=== PATIENT | female | born 1995 | race Caucasian/White ===

== ENCOUNTER 2022-10-26 18:48 | Inpatient (IN) | payer OTHER ==
[2022-10-26] MEDS ORDERED: Lidocaine 1% (PF) 30 ML VIAL SC PRN (19:22)
[2022-10-26] MEDS ORDERED: Ibuprofen 800 MG TAB PO PRN (19:22)
[2022-10-26] MEDS ORDERED: Tranexamic Acid 1,000 MG/10 ML VIAL IVP PRN (19:22)
[2022-10-26] MEDS ORDERED: Misoprostol 200 MCG TAB PR PRN (19:22)
[2022-10-26] MEDS ORDERED: Carboprost 250 MCG/ML AMP IM PRN (19:22)
[2022-10-26] MEDS ORDERED: Methylergonovine 0.2 MG/ML VIAL IM PRN (19:22)
[2022-10-26] MEDS ORDERED: Diphenoxylate HCl/Atropine Tablet PO PRN (19:22)
[2022-10-26] MEDS ORDERED: Promethazine HCl 25 MG/ML VIAL IM PRN ×2 (19:22→21:04)
[2022-10-26] MEDS ORDERED: hydrALAZINE 20 MG/ML VIAL SLOW IVP PRN (19:22)
[2022-10-26] MEDS ORDERED: Ondansetron PF 4 MG/2 ML Vial IVP PRN ×2 (19:22→21:04)
[2022-10-26] MEDS ORDERED: Lactated Ringer's 1,000 ML IV SCH (19:30)
[2022-10-26] MEDS ORDERED: Misoprostol 100 MCG TAB VAG SCH (19:30)
[2022-10-26] MEDS ORDERED: NS w/ Oxytocin 30 units 500 ML IV SCH ×2 (19:30)
[2022-10-26 19:58] LABS: Hemoglobin 13.6 g/dL (12.0-15.5); Mean Corpuscular HGB CONC 34.7 g/dL (32.0-36.0); Mean Corpuscular Hemoglobin 31.1 pg (27.0-33.0); Mean Corpuscular Volume 89.5 fl (81.6-98.3); Mean Platelet Volume 11.5 fl (7.4-10.4); Platelet Count 224 10x3/uL (150-450); RBC Distribution Width 12.7 % (11.5-14.5); Red Blood Cell (RBC) Count 4.38 10x6/uL (3.90-5.03); White Blood Cell (WBC) Count 16.3 10x3/uL (3.5-10.5)
[2022-10-26] MEDS ORDERED: fentaNYL/Ropivacaine Epidural 100 ML ONE (20:02)
[2022-10-26 20:18] VITALS: BMI 28.3
[2022-10-26] MEDS ORDERED: fentaNYL 50 mcg/mL 1 mL Vial ONE (20:21)
[2022-10-26 20:23] LABS: HBSAg Index 0.15 S/CO (0-0.99); Hep B Surf Ag - L&D Non-Reactive S/CO (NonReactive); Syphilis Antibody Nonreactive (Nonreactive); Syphilis Antibody Index 0.03 S/CO (<1.00 Non-Reactive)
[2022-10-26] MEDS ORDERED: diphenhydrAMINE 50 MG/ML VIAL IVP PRN (21:04)
[2022-10-26] MEDS ORDERED: Lactated Ringer's 500 ML IV PRN (21:04)
[2022-10-26] MEDS ORDERED: Acetaminophen 325 MG TAB PO PRN (21:04)
[2022-10-26] MEDS ORDERED: Naloxone HCl 0.4 mg/ml Vial IVP PRN ×2 (21:04)
[2022-10-26] MEDS ORDERED: Moisturizing Cream (Eucerin) 113 GM JAR TOP PRN (21:04)
[2022-10-26] MEDS ORDERED: ePHEDrine Sulfate 50 MG/10 ML VIAL SLOW IVP PRN (21:04)
[2022-10-26] MEDS ORDERED: fentaNYL 2 mcg/Ropivacaine 0.2% Epidural 100 ML CADD EPIDURAL SCH (21:15)
[2022-10-26] MEDS ORDERED: Communication Order-Pharmacy FS SCH (21:15)
[2022-10-27] MEDS ORDERED: Bisacodyl 10 MG SUPP PR PRN (01:01)
[2022-10-27] MEDS ORDERED: Boostrix 0.5 ML (Tdap) VIAL (>/=7 yrs of age) IM ONE (01:01)
[2022-10-27] MEDS ORDERED: NS w/ Oxytocin 30 units 500 ML IV SCH (01:01)
[2022-10-27] MEDS ORDERED: hydrALAZINE 20 MG/ML VIAL SLOW IVP PRN (01:01)
[2022-10-27] MEDS ORDERED: Benzocaine-Menthol 82.5 ML CAN TOP PRN (01:01)
[2022-10-27] MEDS ORDERED: Milk Of Magnesia 30 ML UDCUP PO PRN (01:01)
[2022-10-27] MEDS ORDERED: Misoprostol 200 MCG TAB VAG PRN (01:01)
[2022-10-27] MEDS ORDERED: Lanolin Ointment 7 GM TUBE TOP PRN (01:01)
[2022-10-27] MEDS: Ibuprofen 800 MG TAB PO SCH ×3 (02:57→19:24)
[2022-10-27] MEDS ORDERED: Ibuprofen 800 MG TAB PO SCH (06:00)
[2022-10-27] MEDS: Ferrous Sulfate 325 MG TAB PO SCH ×2 (09:18→20:42)
[2022-10-27] MEDS: Prenatal Vitamin 1 TAB PO SCH (09:20)
[2022-10-27] MEDS: HYDROcodone/Acetaminophen 5/325 mg Tablet PO PRN ×3 (09:20→20:44)
[2022-10-27] MEDS: Docusate 100 MG CAP PO SCH ×2 (09:27→20:43)
[2022-10-28] MEDS: Ibuprofen 800 MG TAB PO SCH (03:39)
[2022-10-28] MEDS: HYDROcodone/Acetaminophen 5/325 mg Tablet PO PRN ×2 (07:37→07:45)
[2022-10-28] MEDS: Prenatal Vitamin 1 TAB PO SCH (07:38)
[2022-10-28] MEDS: Docusate 100 MG CAP PO SCH ×2 (07:38→07:46)
[2022-10-28] MEDS: Ferrous Sulfate 325 MG TAB PO SCH (07:46)
[2022-10-28 09:06] VITALS: BP 120/82; TEMP 97.5
== END 2022-10-28 10:05 | disposition home or self-care (01) | DRG 807 ==
LOC: CSHLD/OP 18:48 → CSHLD 19:56 → CSHPP 10-27 02:06
PROVIDERS: ADMIT Obstetrics & Gynecology; ATTEND Obstetrics & Gynecology
PROC: 10E0XZZ Delivery of Products of Conception, External Approach (ICD-10-PCS; principal; 2022-10-26)
DX: O48.0 Post-term pregnancy (principal); Z37.0 Single live birth; Z3A.40 40 weeks gestation of pregnancy
CPT/HCPCS: 36415; 51702; 85027; 86780; 86850; 86900; 86901; 87340; 99285